=== PATIENT | male | born 1960 | race Hispanic/Latino ===

== ENCOUNTER 2023-02-11 05:44 | Observation (INO) | payer OTHER ==
[2023-02-10 11:54] LABS: BASOPHILS # (AUTO) 0.02 K/uL (0.00-0.20); BASOPHILS % (AUTO) 0.3 % (0.0-5.0); EOSINOPHILS # (AUTO) 0.94 K/uL (0.00-0.70); EOSINOPHILS % (AUTO) 14.8 % (0.0-8.0); HEMATOCRIT 40.8 % (42-54); IMMATURE GRANULOCYTE ABSOLUTE 0.02 K/uL (0-1); LYMPHOCYTES # (AUTO) 1.6 K/uL (1.0-4.8); LYMPHOCYTES % (AUTO) 24.6 % (21.0-51.0); MEAN CORPUSCULAR HGB CONC 34.1 g/dL (32.0-36.0); MEAN CORPUSCULAR VOLUME 93.8 fL (79-99); MONOCYTES # (AUTO) 0.7 K/uL (0.1-1.0); MONOCYTES % (AUTO) 10.9 % (3.0-13.0); NEUTROPHILS # (AUTO) 3.1 K/uL (1.8-7.7); NEUTROPHILS % (AUTO) 49.1 % (40.0-77.0); PLATELET COUNT (AUTO) 117 K/uL (130-400); RED BLOOD CELL COUNT(AUTO) 4.35 MIL/uL (4.50-6.20); RED CELL DISTRIBUTION WIDTH 12.1 % (11.0-15.5); WHITE BLOOD COUNT (AUTO) 6.3 K/uL (4.8-10.8)
[2023-02-10 12:13] VITALS: BP 148/80; PULSE 67; RESP 16
[2023-02-10 12:26] LABS: CREATININE 1.2 mg/dL (0.5-1.5); POTASSIUM 4.2 mmol/L (3.5-5.1)
[~2023-02-11] VITALS: Ht 167.6 cm; Wt 96.4 kg
[2023-02-11] VITALS (32 sets, daily range): BP systolic 116–146; BP diastolic 61–85; PULSE 62–89; RESP 11–20; O2SAT 98–99
[~2023-02-11 05:44] MED LIST: FENO145T26 PO; LATA2.5D14 OD; LISI1TAB53 PO
[2023-02-11] MEDS ORDERED: LACTATED RINGERS 1000ML 1,000 ML IV ONE (06:16)
[2023-02-11] MEDS: CEFAZOLIN SODIUM 2 GM VIAL ONE ×2 (06:40→07:42)
[2023-02-11] MEDS ORDERED: TIMO1DRO9 OD (06:43)
[2023-02-11] MEDS ORDERED: LIDOCAINE PF 100MG/5ML (2%) SYRINGE 5ML ONE (06:51)
[2023-02-11] MEDS ORDERED: ONDANSETRON 4MG INJ ONE ×3 (06:51→12:24)
[2023-02-11] MEDS ORDERED: NEOSTIGMINE 5MG/5ML SYR IV ONE (06:51)
[2023-02-11] MEDS ORDERED: SUCCINYLCHOLINE CHLORIDE 20 MG/ML 10 ML VIAL ONE (06:51)
[2023-02-11] MEDS ORDERED: PROPOFOL 10 MG/ML 20ML VIAL IV ONE (06:51)
[2023-02-11] MEDS ORDERED: MIDAZOLAM HCL 1 MG/ML 2ML VIAL ONE (06:51)
[2023-02-11] MEDS ORDERED: GLYCOPYRROLATE 1 MG/5 ML SYRINGE ONE (06:51)
[2023-02-11] MEDS ORDERED: DEXAMETHASONE SOD PHOSPHATE 10MG/ML 1ML VIAL ONE ×2 (06:51→06:55)
[2023-02-11] MEDS ORDERED: ROCURONIUM 10MG/1ML SYR 10 MG/ML ML ONE (06:52)
[2023-02-11] MEDS ORDERED: FENTANYL CITRATE PF 50 MCG/1 ML 2ML VIAL ONE ×3 (06:52→09:30)
[2023-02-11] MEDS ORDERED: CEFAZOLIN SODIUM 1 GM VIAL ONE (06:54)
[2023-02-11] MEDS ORDERED: THROMBIN-JMI 20000 UNIT KIT TP ONE (06:55)
[2023-02-11] MEDS ORDERED: MORPHINE PF 100MG/10ML AMP IV ONE (06:55)
[2023-02-11] MEDS ORDERED: OXYMETAZOLINE HCL SPRAY 15 ML BOTTLE ONE (07:16)
[2023-02-11] MEDS ORDERED: ARTIFICIAL TEARS 3.5 GM OINTMENT ONE (07:18)
[2023-02-11] MEDS ORDERED: ROCURONIUM BROMIDE 10MG/1ML 5ML VL ONE (08:39)
[2023-02-11] MEDS: LIDOCAINE 2%-EPI PF 30 ML+BUPIVACAINE/PF 0.25% 30ML /60ML SYR IJ SCH ×4 (09:16→14:58)
[2023-02-11] MEDS ORDERED: PROMETHAZINE HCL 25 MG/ML 1ML AMPULE IM PRN (11:30)
[2023-02-11] MEDS: DEXAMETHASONE SOD PHOSPHATE 4 MG/ML 1ML VIAL IVP SCH ×3 (11:30→23:39)
[2023-02-11] MEDS ORDERED: MORPHINE 2 MG SYG IVP PRN (11:30)
[2023-02-11] MEDS ORDERED: 0.9%NACL 10ML VIAL IVP PRN (11:30)
[2023-02-11] MEDS ORDERED: HYDROCODONE/ACETAMINOPHEN 5/325 MG TAB PO PRN (11:30)
[2023-02-11] MEDS ORDERED: MEPERIDINE-PF 25 MG/ML SYG ONE (12:24)
[2023-02-11] MEDS ORDERED: KETOROLAC 30MG VIAL (30MG/ML) ONE (12:25)
[2023-02-11] MEDS ORDERED: DEXAMETHASONE SOD PHOSPHATE 4 MG/ML 1ML VIAL ONE (12:25)
[2023-02-11] MEDS ORDERED: METOCLOPRAMIDE 10 MG/2 ML VIAL ONE (12:30)
[2023-02-11] MEDS: LACTATED RINGERS 1000ML 1,000 ML IV SCH ×2 (15:06→23:39)
[2023-02-11] MEDS ORDERED: CEFAZOLIN SODIUM 2 GM VIAL IVPB SCH (16:00)
[2023-02-11] MEDS: TIMOLOL MALEATE 0.5% 5 ML BOTTLE OP SCH (21:00)
[2023-02-11] MEDS ORDERED: TIMOLOL MALEATE OD SCH (21:00)
[2023-02-11] MEDS ORDERED: [UNRECOGNIZED DRUG - OTHER] OD SCH (21:00)
[2023-02-11] MEDS ORDERED: FENOFIBRATE NANOCRYSTALLIZED 145 MG TAB PO SCH (21:00)
[2023-02-11] MEDS ORDERED: LATANOPROST 2.5 ML DROPS OD SCH (21:00)
[2023-02-12] VITALS: BP 113/72; PULSE 79; RESP 20
[2023-02-12 04:00] VITALS: BP 108/66; PULSE 69; RESP 20
[2023-02-12] MEDS: DEXAMETHASONE SOD PHOSPHATE 4 MG/ML 1ML VIAL IVP SCH (05:22)
[2023-02-12 08:00] VITALS: O2SAT 98
[2023-02-12 08:22] VITALS: BP 136/53; PULSE 84; RESP 19
[2023-02-12] MEDS: TIMOLOL MALEATE 0.5% 5 ML BOTTLE OP SCH (09:00)
[2023-02-12] MEDS ORDERED: HYDROCHLOROTHIAZIDE 25 MG TABLET PO SCH (09:00)
[2023-02-12] MEDS ORDERED: LISINOPRIL 20 MG TABLET PO SCH (09:00)
[2023-02-12] MEDS ORDERED: NON-FORMULARY MEDICATION 1 EACH (Lisinopril/Hydrochlorothiazide (Lisinopril-Hctz 20-25 mg PO SCH (09:00)
== END 2023-02-12 11:00 | disposition home or self-care (01) ==
LOC: DAH 05:44 → DAHIP 05:45 → DAH 05:45 → EDSTATUS 12:00 → 4AH 13:15
PROVIDERS: ADMIT Neurological Surgery; ATTEND Neurological Surgery
DX: M48.061 Spinal stenosis, lumbar region without neurogenic claudication (principal); I10 Essential (primary) hypertension; E78.5 Hyperlipidemia, unspecified; M67.40 Ganglion, unspecified site; Z79.899 Other long term (current) drug therapy
CPT/HCPCS: 80048; 85025; 36415; 71045; 93005; 63047; 63048; 96376 ×2; 96372; 96365; 96375; 88304; 72020; A6260; G0378 ×22; A4663; J7120 ×2; A4649; A4344 ×3; J3010 ×3; J0690 ×3; J3490 ×3; J1100 ×6; J2710; J0330; J0665; J2550; J2001; J2250; J2704; J2274; J2405 ×3; J1885; J2175; J2765; A5113; C1769; A4215; A4223; A4222; A4221; A4600; A4510